=== PATIENT | male | born 1960 | race Two or more races ===

== ENCOUNTER 2019-04-07 21:25 | Emergency (ER) | payer MEDICAID ==
[~2019-04-07] VITALS: Ht 177.8 cm; Wt 90.7 kg
[2019-04-07] MEDS ORDERED: OLANZAPINE 10 MG VIAL IM ONE ×2 (22:00)
--- NOTE | 2019-04-07 22:00 | NUR ---
BIB [facility] FOR BEHAVIORAL ISSUES. ACCORDING TO EMS PATIENT WAS FOUND ON THE STREET THROWING ROCKS AT CARS PASSING BY. [employer] ESCORTED PATIENT INTO THE DEPT. UPON PRESENTING TO THE DEPT, PATIENT APPEARED AGGRESSIVE, YELLING PROFANITY. PATIENT UNABLE TO BE ASSESSED DUE TO THE INABILITY TO REMAIN STILL, OR REFRAIN FROM YELLING AT STAFF.
--- NOTE | 2019-04-07 22:04 | NUR ---
Code Osvaldo called. Pt violent towards staff members, attempting to get out of bed.
[2019-04-07 22:22] LABS: BASOPHILS # (AUTO) 0.1 K/uL (0.0-8.0); BASOPHILS % (AUTO) 0.6 % (0.0-2.0); EOSINOPHILS # (AUTO) 0.1 K/uL (0.0-0.7); EOSINOPHILS % (AUTO) 0.7 % (0.0-7.0); HEMATOCRIT 46.9 % (36.7-47.1); HEMOGLOBIN 15.7 g/dL (12.5-16.3); LYMPHOCYTES # (AUTO) 2.7 K/uL (20.0-40.0); LYMPHOCYTES % (AUTO) 27.6 % (20.5-51.5); MEAN CORPUSCULAR HEMOGLOBIN 30.2 uug (23.8-33.4); MEAN CORPUSCULAR HGB CONC 34 g/dL (32.5-36.3); MEAN CORPUSCULAR VOLUME 90.2 fL (73.0-96.2); MONOCYTES # (AUTO) 0.9 K/uL (2.0-10.0); MONOCYTES % (AUTO) 9.7 % (0.0-11.0); NEUTROPHILS % (AUTO) 61.4 % (38.5-71.5); PLATELET COUNT (AUTO) 242 K/uL (152-348); WHITE BLOOD COUNT (AUTO) 9.8 K/uL (3.6-10.2)
[2019-04-07] MEDS ORDERED: LORAZEPAM 2 MG/1 ML VIAL ONE (22:25)
[2019-04-07] MEDS ORDERED: LORAZEPAM 2 MG/1 ML VIAL IM ONE (22:30)
[2019-04-07 22:43] LABS: ALANINE AMINOTRANSFERASE 21 U/L (16-63); ALKALINE PHOSPHATASE 83 U/L (50-136); ASPARTATE AMINOTRANSFERASE 30 U/L (15-37); BILIRUBIN,DIRECT 0.2 mg/dL (0.0-0.2); CARBON DIOXIDE 21 mmol/L (21-32); CHLORIDE 104 mmol/L (98-107); CREATININE 1.2 mg/dL (0.6-1.3); GLUCOSE 92 mg/dL (74-106); POTASSIUM 3.8 mmol/L (3.5-5.1); TOTAL PROTEIN, SERUM 8.3 g/dL (6.4-8.2); UREA NITROGEN, BLOOD 22 mg/dL (7-18)
[2019-04-07 22:45] LABS: ACETAMINOPHEN < 2.0 ug/mL (10-30)
[2019-04-07 22:50] LABS: THYROID STIMULATING HORMONE 1.177 mIU/mL (0.358-3.740)
[2019-04-07 22:54] LABS: ETHANOL 6 MG/DL (0-0)
--- NOTE | 2019-04-07 23:00 | NUR ---
PATIENT STILL YELLING AND SHOWING INCREASED SIGNS OF AGGRESSION, TURNED DOWN LIGHTS TO DECREASE STIMULI IN ENVIRONMENT TO CALM PATIENT DOWN
[2019-04-07] MEDS ORDERED: diphenhydrAMINE 50 MG/1 ML VIAL ONE (23:05)
[2019-04-07] MEDS ORDERED: diphenhydrAMINE 50 MG/1 ML VIAL IM ONE (23:15)
--- NOTE | 2019-04-08 00:15 | NUR ---
Patient aggression resolved with Zyprexa, and Ativan IM medication. Per ERMD cancel Benadryl injection.
--- NOTE | 2019-04-08 01:24 | NUR ---
Patient in bed at lowest position, NAD, VSS. Peripheral checks of extremities in tact and palpable.
--- NOTE | 2019-04-08 02:00 | NUR ---
REMOVED RESTRAINTS, PATIENT IS ASLEEP, NAD, VSS NO SIGNS OF AGGRESSION AND DOES NOT POSE A THREAT AT THIS TIME, WILL CONTINUE TO MONITOR BEHAVIORAL PATTERNS FOR ANY SUDDEN CHANGES.
--- NOTE | 2019-04-08 03:10 | NUR ---
PATIENT STILL ASLEEP, NAD VSS
[2019-04-08 05:00] LABS: *BLOOD, URINE 2+ (NEGATIVE); *COLOR,URINE YELLOW (YELLOW); *KETONES,URINE NEGATIVE (NEGATIVE); *UROBILINOGEN,URINE 0.2 E.U./dl (NORMAL); LEUKOCYTE ESTERASE ,URINE NEGATIVE (NEGATIVE); NITRITE, URINE NEGATIVE (NEGATIVE); UGLUCOSE NEGATIVE (NEGATIVE)
[2019-04-08 05:10] LABS: *AMPHETAMINE, URINE POSITIVE (NEGATIVE); *BARBITURATE, URINE NEGATIVE (NEGATIVE); *CANNABINOID, URINE POSITIVE (NEGATIVE); *COCCAINE, URINE NEGATIVE (NEGATIVE); *OPIATE, URINE NEGATIVE (NEGATIVE); *PHENCYCLIDINE SCREEN,URINE NEGATIVE (NEGATIVE)
[2019-04-08 05:11] LABS: *BILIRUBIN,URIN 1+ (NEGATIVE); *CLARITY,URINE HAZY (CLEAR)
[2019-04-08 05:19] LABS: BACTERIA,URINE MODERATE /HPF (NONE SEEN); RBC,URINE 20-50 /HPF (0-3); SQUAMOUS EPITHELIAL CELL,UR FEW /HPF (NONE SEEN)
--- NOTE | 2019-04-08 07:23 | NUR ---
PATIENT IS SLEEPING, [place] TO TOUCH. OBSERVER/SITTER AT BEDSIDE. I CALLED NAYA MARAVILLA FOR EVAL..
--- NOTE | 2019-04-08 08:22 | NUR ---
patient is still sleeping but arousable. vital signs stable.
--- NOTE | 2019-04-08 10:14 | NUR ---
Patient is sleepy but arousable. sitter/observer at bedside.
--- NOTE | 2019-04-08 11:10 | NUR ---
NAYA MARAVILLA HERE SPEAKING TO PATIENT. PATIENT IS AWAKE, ALERT AND ORIENTED.
--- NOTE | 2019-04-08 11:57 | NUR ---
PATIENT STATES HE IS NOT HOMELESS AND LIVES IN AN APARTMENT ON [facility].
--- NOTE | 2019-04-08 12:27 | NUR ---
DC AND FOLLOW UP INSTRUCTIONS GIVEN AND EXPLAINED TO PATIENT WHO STATES HE UNDERSTANDS ALL INSTRUCTIONS HE IS AMBULATORY WITH STEADY GAIT. HE IS CALM AND COOPERATIVE.
[2019-04-08 12:28] VITALS: BP 119/72
--- NOTE | 2019-04-08 12:30 | NUR ---
DOCUMENTATION CLARIFICATION.... DC PRIMARY DX IS METHAMPHETAMINE MISUSE NOT METHADONE MISUSE
== END 2019-04-08 12:29 | disposition home or self-care (01) ==
LOC: ER 21:27
DX: F29 Unspecified psychosis not due to a substance or known physiological condition (principal); F15.10 Other stimulant abuse, uncomplicated
CPT/HCPCS: 36415; 71045; 80048; 80076; 80307; 81000; 81001; 84443; 85025; 85730; 87086; 93005; 96372 ×2; 99284; G0480 ×2; G0481; J2060; A4663; C1758; J1200; J2358